=== PATIENT | female | born 1980 | race Caucasian/White ===

== ENCOUNTER 2016-06-04 11:21 | Emergency (ER) | payer MEDICAID ==
[2016-06-04 11:30] VITALS: BP 117/76
[2016-06-04] MEDS ORDERED: Albuterol/Ipratropium 3.0-0.5 MG/3 ML Neb Soln ONE (12:00)
--- NOTE | 2016-06-04 12:01 | EDM.PDOC ---
ED HISTORY OF PRESENT ILLNESS - General Chief Complaint: Respiratory Problem Stated Complaint: [id number] SOB Time Seen by Provider: 06/04/16 11:56 Source of Information: Reports: Patient History Limitations: Reports: No limitations - History of Present Illness INITIAL COMMENTS - FREE TEXT/NARRATIVE: 35 yo white female c/o 3 days of cough w/ clear sputum and wheezing. PMHx. Asthma. Pt. stop smoking cigs. 2015. Pt. states she felt warm but no fever or chills Symptom Onset Date: 06/01/16 Symptom Onset Time: 12:00 Timing/Duration: Reports: Day(s): Severity: moderate Location, General: Reports: chest Worsens with: Reports: Breathing Associated Symptoms (General): Reports: cough w sputum - Related Data Allergies/ADRs: Allergies Allergy/AdvReac Type Severity Reaction Status Date / Time ketorolac tromethamine Allergy Hives Verified 06/04/16 11:30 [From Toradol] latex Allergy unknown Verified 06/04/16 11:30 Home Meds: Home Meds Albuterol [Ventolin HFA] 2 puff INH Q6H PRN 05/29/14 [History] Fluticasone Propionate [Flovent HFA 110 MCG] 12 gm INH BID 06/22/15 [History] Albuterol [IJD: Albuterol] 2.5 mg NEB Q3H nebule 02/15/16 [Rx] Budesonide [Pulmicort] 0.5 mg NEB BIDRT neb 02/15/16 [Rx] Past Medical History HEENT History: Reports: Otitis media Cardiovascular History: Reports: None Respiratory History: Reports: Asthma Gastrointestinal History: Reports: None Genitourinary History: Reports: None 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: Dysfunctional uterine bleeding Musculoskeletal History: Reports: None Neurological History: Reports: Migraines Psychiatric History: Reports: Anxiety, Depression Endocrine/Metabolic History: Reports: None Hematologic History: Reports: Anemia Immunologic History: Reports: None Oncologic (Cancer) History: Reports: None Dermatologic History: Reports: None - Infectious Disease History Infectious Disease History: Reports: Chicken pox - Past Surgical History Head Surgeries/Procedures: Reports: None Female Surgical History: Reports: section, Tubal ligation Social & Family History - Family History Family Medical History: Noncontributory - Tobacco Use Smoking Status *Q: Former Smoker Years of Tobacco use: 10 Packs/Tins Daily: 0.1 Used Tobacco, but Quit: Yes Month Tobacco Last Used: february Second Hand Smoke Exposure: No - Caffeine Use Caffeine Use: Reports: Coffee, Soda - Alcohol Use Days Per Week of Alcohol Use: 0 Number of Drinks Per Day: 0 Total Drinks Per Week: 0 - Recreational Drug Use Recreational Drug Use: No Drug Use in Last 12 Months: No - Living Situation & Occupation Living situation: Reports: , with family Occupation: employed ED ROS GENERAL - Review of Systems Review Of Systems: See Below Constitutional: Reports: no symptoms HEENT: Reports: No symptoms Respiratory: Reports: Shortness of Breath, Cough Cardiovascular: Reports: No symptoms Endocrine: Reports: no symptoms GI/Abdominal: Reports: No symptoms : Reports: no symptoms Musculoskeletal: Reports: no symptoms Skin: Reports: no symptoms Neurological: Reports: No Symptoms Psychiatric: Reports: No symptoms Hematologic/Lymphatic: Reports: no symptoms Immunologic: Reports: no symptoms ED EXAM, GENERAL - Physical Exam Exam: See Below Exam Limited By: No limitations General Appearance: alert, no apparent distress Eye Exam: bilateral eye: EOMI, PERRL Ears: normal external exam Nose: normal inspection Throat/Mouth: Normal inspection, Normal lips Head: atraumatic, normocephalic Neck: normal inspection Respiratory/Chest: no respiratory distress, rhonchi, wheezing Cardiovascular: normal peripheral pulses, regular rate, rhythm Back Exam: normal inspection Extremities: normal inspection Neurological: alert, oriented, CN II-XII intact Psychiatric: normal affect Skin Exam: Warm, Normal color Lymphatic: no adenopathy Course - Vital Signs Text/Narrative:: discussed with patient Last Recorded V/S: Last Vital Signs Temp 35.8 C 06/04/16 11:25 Pulse 74 06/04/16 12:06 Resp 16 06/04/16 11:25 BP 117/76 06/04/16 11:25 Pulse Ox 95 06/04/16 12:06 - Orders/Labs/Meds Orders: Active Orders 24 hr Category Date Time Status Chest 2V [CR] Urgent Exams 06/04/16 11:57 Ordered CBC WITH AUTO DIFF [HEME] Stat Lab 06/04/16 12:06 Results LACTIC ACID [CHEM] Stat Lab 06/04/16 12:00 Ordered MANUAL DIFFERENTIAL QA/NC [HEME] Stat Lab 06/04/16 12:06 Results guaiFENesin [Mucinex] Med 06/04/16 12:21 Once 600 mg PO STAT ONE Medication Orders Guaifenesin (Mucinex) 600 mg PO STAT ONE Stop: 06/04/16 12:22 Labs: Laboratory Tests 06/04/16 Range/Units 12:06 WBC 9.1 (5.0-10.0) 10^3/uL RBC 5.52 H (4.2-5.4) 10^6/uL Hgb 14.8 (12.0-16.0) g/dL Hct 44.4 (37.0-47.0) % MCV 80.4 (80-100) fL MCH 26.8 L (27.0-34.0) pg MCHC 33.3 (33.0-35.0) g/dL Plt Count 268 (150-450) 10^3/uL Neut % (Auto) 51.6 (42.2-75.2) % Lymph % (Auto) 28.7 (20.5-50.1) % Atlantic % (Auto) 5.7 (2-8) % Eos % (Auto) 13.2 H (1.0-3.0) % Baso % (Auto) 0.8 (0.0-1.0) % Add Manual Diff Yes Meds: Medications Generic Name Dose Route Start Last Admin Trade Name Freq PRN Reason Stop Dose Admin Guaifenesin 600 mg 06/04/16 12:21 Mucinex PO 06/04/16 12:22 STAT ONE Discontinued Medications Generic Name Dose Route Start Last Admin Trade Name Freq PRN Reason Stop Dose Admin Albuterol/Ipratropium Confirm 06/04/16 12:00 06/04/16 12:05 Duoneb 3.0-0.5 Mg/3 Ml Administered 06/04/16 12:01 3 ml Dose Administration 3 ml .ROUTE .STK-MED ONE Azithromycin 500 mg 06/04/16 12:19 Zithromax PO 06/04/16 12:20 ONETIME ONE Methylprednisolone Sodium Succinate 125 mg 06/04/16 12:02 06/04/16 12:10 Solu-Medrol IM 06/04/16 12:03 125 mg ONETIME ONE Administration Departure - Departure Time of Disposition: 12:21 Disposition: Home, Self-Care 01 Condition: good Clinical Impression: Bronchitis Forms: ED Department Discharge Additional Instructions: Rest Increase intake of Fluids ( Water / Juice) Take the Zithromax 250mg QD X 4 days Take the Mucinex 600mg BID X 15 days F/U w/ PCP - My Orders Last 24 Hours: My Active Orders 06/04/16 11:57 Chest 2V [CR] Urgent 06/04/16 12:00 LACTIC ACID [CHEM] Stat 06/04/16 12:06 CBC WITH AUTO DIFF [HEME] Stat MANUAL DIFFERENTIAL QA/NC [HEME] Stat 06/04/16 12:21 guaiFENesin [Mucinex] 600 mg PO STAT ONE - Assessment/Plan Last 24 Hours: My Active Orders 06/04/16 11:57 Chest 2V [CR] Urgent 06/04/16 12:00 LACTIC ACID [CHEM] Stat 06/04/16 12:06 CBC WITH AUTO DIFF [HEME] Stat MANUAL DIFFERENTIAL QA/NC [HEME] Stat 06/04/16 12:21 guaiFENesin [Mucinex] 600 mg PO STAT ONE
[2016-06-04] MEDS ORDERED: methylPREDNISolone Sodium Succinate 125 MG/2 ML SDV IM ONE (12:02)
[2016-06-04] MEDS ORDERED: Azithromycin 250 MG Tab PO ONE (12:19)
[2016-06-04] MEDS ORDERED: guaiFENesin 600 MG Tab.ER PO ONE (12:21)
== END 2016-06-04 12:40 | disposition home or self-care (01) ==
LOC: DL.ED 11:21
DX: J40 Bronchitis, not specified as acute or chronic (principal); F41.9 Anxiety disorder, unspecified; F32.9 Major depressive disorder, single episode, unspecified; Z79.899 Other long term (current) drug therapy; Z86.2 Personal history of diseases of the blood and blood-forming organs and certain disorders involving the immune mechanism; Z98.51 Tubal ligation status; Z87.891 Personal history of nicotine dependence; Z91.040 Latex allergy status
CPT/HCPCS: 36415; 71020; 83605; 85025; 96372; 99285; A9270; J2930

== ENCOUNTER 2016-06-30 22:41 | Emergency (ER) | payer MEDICAID ==
[2016-06-30] MEDS ORDERED: methylPREDNISolone Sodium Succinate 125 MG/2 ML SDV IVPUSH ONE (23:26)
[2016-06-30] MEDS ORDERED: Albuterol/Ipratropium 3.0-0.5 MG/3 ML Neb Soln NEB ONE (23:27)
[2016-06-30] MEDS ORDERED: predniSONE 20 MG Tab PO ONE (23:59)
[2016-07-01] MEDS ORDERED: Albuterol 0.083% 2.5 MG/3 ML Neb Soln NEB ONE (00:15)
[2016-07-01] MEDS ORDERED: predniSONE 20 MG Tab ONE (00:55)
--- NOTE | 2016-07-01 01:02 | EDM.PDOC ---
ED HPI GENERAL MEDICAL PROBLEM - General Chief Complaint: Respiratory Problem Stated Complaint: TROUBLE BREATHING Time Seen by Provider: 06/30/16 23:15 Source of Information: Reports: Patient History Limitations: Reports: No Limitations - History of Present Illness INITIAL COMMENTS - FREE TEXT/NARRATIVE: c/o difficultly breathing, asthma not responding to rescue inhaler. Admits recent move to house that had cats. Carpets recently cleaned. Unalbe to locate nebulizer machine in moving process. No fever or chills. Location: Reports: Chest Worsens with: Reports: Breathing Associated Symptoms: Reports: Cough. 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: Reports: Breathing Treatments Chest Pain Score (Numeric/FACES): 7 - Related Data Allergies Allergy/AdvReac Type Severity Reaction Status Date / Time ketorolac tromethamine Allergy Hives Verified 06/30/16 22:45 [From Toradol] latex Allergy unknown Verified 06/30/16 22:45 Home Meds: Home Meds Albuterol [Ventolin HFA] 2 puff INH Q6H PRN 05/29/14 [History] Fluticasone Propionate [Flovent HFA 110 MCG] 12 gm INH BID 06/22/15 [History] Albuterol [IJD: Albuterol] 2.5 mg NEB Q3H nebule 02/15/16 [Rx] Budesonide [Pulmicort] 0.5 mg NEB BIDRT neb 02/15/16 [Rx] Albuterol/Ipratropium [Combivent Respimat] 1 puff INH Q8H 06/30/16 [History] LORazepam [LORazepam] 1 tab PO DAILY 06/30/16 [History] Zolpidem Tartrate [Zolpidem Tartrate] 1 tab PO DAILY PRN 06/30/16 [History] Past Medical History HEENT History: Reports: Otitis Media Cardiovascular History: Reports: None Respiratory History: Reports: Asthma Gastrointestinal History: Reports: None Genitourinary History: Reports: None 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 Musculoskeletal History: Reports: None Neurological History: Reports: Migraines Psychiatric History: Reports: Anxiety, Depression Endocrine/Metabolic History: Reports: None Hematologic History: Reports: Anemia Immunologic History: Reports: None Oncologic (Cancer) History: Reports: None Dermatologic History: Reports: None - Infectious Disease History Infectious Disease History: Reports: Chicken Pox - Past Surgical History Head Surgeries/Procedures: Reports: None Female Surgical History: Reports: Section, Tubal Ligation Social & Family History - Family History Family Medical History: Noncontributory - Tobacco Use Smoking Status *Q: Former Smoker Years of Tobacco use: 10 Packs/Tins Daily: 0.1 Used Tobacco, but Quit: Yes Month Tobacco Last Used: january Second Hand Smoke Exposure: No - Caffeine Use Caffeine Use: Reports: Coffee, Soda - Alcohol Use Days Per Week of Alcohol Use: 0 Number of Drinks Per Day: 0 Total Drinks Per Week: 0 - Recreational Drug Use Recreational Drug Use: No Drug Use in Last 12 Months: No - Living Situation & Occupation Living situation: Reports: , with Family Occupation: Employed ED ROS GENERAL - Review of Systems Review Of Systems: See Below Constitutional: Reports: No Symptoms HEENT: Reports: No Symptoms Respiratory: Reports: Shortness of Breath, Wheezing, Cough. Denies: Sputum Cardiovascular: Reports: No Symptoms GI/Abdominal: Reports: No Symptoms Musculoskeletal: Reports: No Symptoms Skin: Reports: No Symptoms Neurological: Reports: No Symptoms ED EXAM, GENERAL - Physical Exam Exam: See Below Exam Limited By: No Limitations General Appearance: Alert, Mild Distress Eye Exam: Bilateral Eye: EOMI, PERRL Ears: Normal External Exam Ear Exam: Right Ear: Auricle Normal Head: Atraumatic, Normocephalic Neck: Normal Inspection Respiratory/Chest: Decreased Breath Sounds, Wheezing (bilateral ) Cardiovascular: Normal Peripheral Pulses, Regular Rate, Rhythm GI/Abdominal: Normal Bowel Sounds Extremities: Normal Inspection Neurological: Alert, Oriented, Normal Cognition Psychiatric: Normal Affect, Normal Mood Skin Exam: Warm, Dry, Intact, Normal Color Course - Vital Signs Last Recorded V/S: Last Vital Signs Temp 96.6 F 07/01/16 01:13 Pulse 101 H 07/01/16 01:13 Resp 20 07/01/16 01:13 BP 124/70 07/01/16 01:13 Pulse Ox 93 L 07/01/16 01:13 - Orders/Labs/Meds Orders: Active Orders 24 hr Category Date Time Status RT Aerosol Therapy [RC] ASDIRECTED Care 06/30/16 23:27 Active RT Aerosol Therapy [RC] ASDIRECTED Care 07/01/16 00:16 Active Meds: Medications Discontinued Medications Generic Name Dose Route Start Last Admin Trade Name Freq PRN Reason Stop Dose Admin Albuterol 2.5 mg 07/01/16 00:15 07/01/16 00:21 Proventil Neb Soln NEB 07/01/16 00:16 2.5 mg ONETIME ONE Administration Albuterol/Ipratropium 3 ml 06/30/16 23:27 06/30/16 23:38 Duoneb 3.0-0.5 Mg/3 Ml NEB 06/30/16 23:28 3 ml ONETIME ONE Administration Methylprednisolone Sodium Succinate 125 mg 06/30/16 23:26 06/30/16 23:36 Solu-Medrol IVPUSH 06/30/16 23:27 125 mg ONETIME ONE Administration Prednisone Confirm 07/01/16 00:55 07/01/16 01:12 Prednisone Administered 07/01/16 00:56 Not Given Dose 40 mg .ROUTE .STK-MED ONE - Re-Assessments/Exams Free Text/Narrative Re-Assessment/Exam: 07/01/16 05:07 decreased cough and improved ir eschange following duoneb. Notes some improvment. Repeat with Albuterol. Respoirations non labored. Fine basilar expiratory wheeze. Departure - Departure Time of Disposition: 00:59 Disposition: Home, Self-Care 01 Condition: fair Clinical Impression: Asthma Qualifiers: Asthma severity: mild persistent Asthma complication type: with acute exacerbation Qualified Code(s): J45.31 - Mild persistent asthma with (acute) exacerbation - Discharge Information Instructions: Asthma, Adult Referrals: Gerardo Pham MD [Primary Care Provider] - Forms: ED Department Discharge Additional Instructions: clinic follow up next week muccinex to loosen cough per package instructions albuterol inhaler 2 puffs every 4 hours as needed prednisone 40mg x 4 days then 20mg x 5 days 10mg x 5 days - My Orders Last 24 Hours: My Active Orders 06/30/16 23:27 RT Aerosol Therapy [RC] ASDIRECTED 07/01/16 00:16 RT Aerosol Therapy [RC] ASDIRECTED - Assessment/Plan Last 24 Hours: My Active Orders 06/30/16 23:27 RT Aerosol Therapy [RC] ASDIRECTED 07/01/16 00:16 RT Aerosol Therapy [RC] ASDIRECTED
[2016-07-01 01:17] VITALS: BP 124/70
== END 2016-07-01 01:17 | disposition home or self-care (01) ==
LOC: DL.ED 22:41
DX: J45.31 Mild persistent asthma with (acute) exacerbation (principal); Z88.8 Allergy status to other drugs, medicaments and biological substances; Z91.040 Latex allergy status; Z79.899 Other long term (current) drug therapy; Z87.891 Personal history of nicotine dependence
CPT/HCPCS: 94640; 96374; 99284; J2930; J7620; A9270-GY

== ENCOUNTER 2016-12-15 07:36 | Emergency (ER) | payer MEDICAID ==
[2016-12-15] MEDS ORDERED: Lidocaine 2% Viscous Solution 15 ML Cup PO ONE (07:52)
[2016-12-15] MEDS ORDERED: Acetaminophen 500 MG Tab PO ONE (07:53)
[2016-12-15 07:54] VITALS: BP 130/81
--- NOTE | 2016-12-15 07:54 | EDM.PDOC ---
ED HPI GENERAL MEDICAL PROBLEM - General Chief Complaint: ENT Problem Stated Complaint: BAD EAR ACHE [id number] Time Seen by Provider: 12/15/16 07:48 Source of Information: Reports: Patient History Limitations: Reports: No Limitations - History of Present Illness INITIAL COMMENTS - FREE TEXT/NARRATIVE: 36 yo white female c/o right ear pain and draining since last night Onset Date: 12/14/16 Onset Time: 12:00 Duration: Hour(s): Location: Reports: Face Quality: Reports: Ache Severity: Moderate Improves with: Reports: None Worsens with: Reports: None Associated Symptoms: Reports: No Other Symptoms - Related Data Allergies Allergy/AdvReac Type Severity Reaction Status Date / Time ketorolac tromethamine Allergy Hives Verified 06/30/16 22:45 [From Toradol] latex Allergy unknown Verified 06/30/16 22:45 Home Meds: Home Meds Albuterol [Ventolin HFA] 2 puff INH Q6H PRN 05/29/14 [History] Fluticasone Propionate [Flovent HFA 110 MCG] 12 gm INH BID 06/22/15 [History] Albuterol [IJD: Albuterol] 2.5 mg NEB Q3H nebule 02/15/16 [Rx] Budesonide [Pulmicort] 0.5 mg NEB BIDRT neb 02/15/16 [Rx] Albuterol/Ipratropium [Combivent Respimat] 1 puff INH Q8H 06/30/16 [History] LORazepam [LORazepam] 1 tab PO DAILY 06/30/16 [History] Zolpidem Tartrate [Zolpidem Tartrate] 1 tab PO DAILY PRN 06/30/16 [History] Past Medical History HEENT History: Reports: Otitis Media Cardiovascular History: Reports: None Respiratory History: Reports: Asthma Gastrointestinal History: Reports: None Genitourinary History: Reports: None 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 Musculoskeletal History: Reports: None Neurological History: Reports: Migraines Psychiatric History: Reports: Anxiety, Depression Endocrine/Metabolic History: Reports: None Hematologic History: Reports: Anemia Immunologic History: Reports: None Oncologic (Cancer) History: Reports: None Dermatologic History: Reports: None - Infectious Disease History Infectious Disease History: Reports: Chicken Pox - Past Surgical History Head Surgeries/Procedures: Reports: None Female Surgical History: Reports: Section, Tubal Ligation Social & Family History - Family History Family Medical History: Noncontributory - Tobacco Use Smoking Status *Q: Former Smoker Years of Tobacco use: 10 Packs/Tins Daily: 0.1 Used Tobacco, but Quit: Yes Month Tobacco Last Used: january Second Hand Smoke Exposure: No - Caffeine Use Caffeine Use: Reports: Coffee, Soda - Alcohol Use Days Per Week of Alcohol Use: 0 Number of Drinks Per Day: 0 Total Drinks Per Week: 0 - Recreational Drug Use Recreational Drug Use: No Drug Use in Last 12 Months: No - Living Situation & Occupation Living situation: Reports: , with Family Occupation: Employed ED ROS ENT - Review of Systems Review Of Systems: See Below Constitutional: Reports: No Symptoms HEENT: Reports: Ear Pain (right), Other (right ear drainage) Respiratory: Reports: No Symptoms Cardiovascular: Reports: No Symptoms Endocrine: Reports: No Symptoms GI/Abdominal: Reports: No Symptoms : Reports: No Symptoms Musculoskeletal: Reports: No Symptoms Skin: Reports: No Symptoms Neurological: Reports: No Symptoms Psychiatric: Reports: No Symptoms Hematologic/Lymphatic: Reports: No Symptoms Immunologic: Reports: No Symptoms ED EXAM, ENT - Physical Exam Exam: See Below Exam Limited By: No Limitations General Appearance: Alert, No Apparent Distress Eye Exam: Bilateral Eye: PERRL Ears: Normal External Exam, Canal Discharge, Canal Swelling Nose: Normal Inspection, Normal Mucousa Mouth/Throat: Normal Inspection, Normal Gums Head: Atraumatic Neck: Normal Inspection, Supple Respiratory/Chest: No Respiratory Distress, Lungs Clear Cardiovascular: Normal Peripheral Pulses, Regular Rate, Rhythm GI/Abdominal: Normal Bowel Sounds, Soft, Non-Tender Back: Normal Inspection Extremities: Normal Inspection, Normal Range of Motion Neurological: Alert, Oriented, CN II-XII Intact Psychiatric: Normal Affect, Normal Mood Skin: Warm, Dry, Intact Lymphatic: No Adenopathy Departure - Departure Time of Disposition: 07:56 Disposition: Home, Self-Care 01 Condition: Good Clinical Impression: Otitis externa Qualifiers: Otitis externa type: unspecified type Chronicity: acute Laterality: right Qualified Code(s): H60.501 - Unspecified acute noninfective otitis externa, right ear - Discharge Information Forms: ED Department Discharge Additional Instructions: No Water in ear Use the Ear Drops as prescribed only: CORTISPORIN OTIC SOLN. 3 drops to right ear QID # 5cc For pain: TYLENOL ES 500mg QID F/U w/ PCP
== END 2016-12-15 08:18 | disposition home or self-care (01) ==
LOC: DL.ED 07:36
DX: H60.501 Unspecified acute noninfective otitis externa, right ear (principal); Z91.040 Latex allergy status; J45.909 Unspecified asthma, uncomplicated
CPT/HCPCS: 99282; A9270

== ENCOUNTER 2017-06-10 19:37 | Emergency (ER) | payer MEDICAID ==
[2017-06-10] MEDS ORDERED: Albuterol/Ipratropium 3.0-0.5 MG/3 ML Neb Soln ONE (19:43)
[2017-06-10] MEDS ORDERED: methylPREDNISolone Sodium Succinate 125 MG/2 ML SDV IM ONE (19:46)
--- NOTE | 2017-06-10 19:49 | EDM.PDOC ---
ED HPI GENERAL MEDICAL PROBLEM - General Chief Complaint: Asthma Stated Complaint: TROUBLE BREATHING, COUGHING Time Seen by Provider: 06/10/17 19:47 Source of Information: Reports: Patient History Limitations: Reports: No Limitations - History of Present Illness INITIAL COMMENTS - FREE TEXT/NARRATIVE: been wheezing all day has neb not working. - Related Data Allergies Allergy/AdvReac Type Severity Reaction Status Date / Time ketorolac tromethamine Allergy Hives Verified 06/10/17 19:47 [From Toradol] latex Allergy unknown Verified 06/10/17 19:47 Home Meds: Home Meds Albuterol [Ventolin HFA] 2 puff INH Q6H PRN 05/29/14 [History] Fluticasone Propionate [Flovent HFA 110 MCG] 12 gm INH BID 06/22/15 [History] Albuterol [IJD: Albuterol] 2.5 mg NEB Q3H nebule 02/15/16 [Rx] Budesonide [Pulmicort] 0.5 mg NEB BIDRT neb 02/15/16 [Rx] Albuterol/Ipratropium [Combivent Respimat] 1 puff INH Q8H 06/30/16 [History] LORazepam 1 tab PO DAILY 06/30/16 [History] Zolpidem Tartrate 1 tab PO DAILY PRN 06/30/16 [History] Past Medical History HEENT History: Reports: Otitis Media Other HEENT History: Chronic otitis media Cardiovascular History: Reports: None Respiratory History: Reports: Asthma Gastrointestinal History: Reports: None Genitourinary History: Reports: None 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 Musculoskeletal History: Reports: None Neurological History: Reports: Migraines Psychiatric History: Reports: Anxiety, Depression Endocrine/Metabolic History: Reports: None Hematologic History: Reports: Anemia Immunologic History: Reports: None Oncologic (Cancer) History: Reports: None Dermatologic History: Reports: None - Infectious Disease History Infectious Disease History: Reports: Chicken Pox - Past Surgical History Head Surgeries/Procedures: Reports: None Female Surgical History: Reports: Section, Tubal Ligation Social & Family History - Family History Family Medical History: Noncontributory - Tobacco Use Smoking Status *Q: Former Smoker Years of Tobacco use: 10 Packs/Tins Daily: 0.1 Used Tobacco, but Quit: Yes Month/Year Tobacco Last Used: 1 Second Hand Smoke Exposure: No - Caffeine Use Caffeine Use: Reports: Coffee, Soda - Alcohol Use Days Per Week of Alcohol Use: 0 Number of Drinks Per Day: 0 Total Drinks Per Week: 0 - Recreational Drug Use Recreational Drug Use: No Drug Use in Last 12 Months: No - Living Situation & Occupation Living situation: Reports: , with Family Occupation: Employed ED ROS GENERAL - Review of Systems Review Of Systems: ROS reveals no pertinent complaints other than HPI. ED EXAM, GENERAL - Physical Exam Exam: See Below Exam Limited By: No Limitations General Appearance: Alert, WD/WN, Mild Distress, Other (sob) Ears: Hearing Grossly Normal Throat/Mouth: Normal Voice, No Airway Compromise Head: Atraumatic Neck: Non-Tender, Full Range of Motion Respiratory/Chest: Decreased Breath Sounds, Wheezing, Prolonged Expiration. No : Retractions, Splinting Cardiovascular: Regular Rate, Rhythm GI/Abdominal: Soft, Non-Tender Neurological: Alert, Oriented, Normal Cognition, Normal Gait, No Motor/Sensory Deficits Psychiatric: Normal Affect, Normal Mood Skin Exam: Warm, Dry, Normal Color Lymphatic: No Adenopathy Course - Vital Signs Last Recorded V/S: Last Vital Signs Temp 36.1 C 06/10/17 19:42 Pulse 90 06/10/17 19:42 Resp 18 06/10/17 19:42 BP 131/73 06/10/17 19:42 Pulse Ox 95 06/10/17 19:42 - Orders/Labs/Meds Meds: Medications Discontinued Medications Generic Name Dose Route Start Last Admin Trade Name Lex PRN Reason Stop Dose Admin Albuterol/Ipratropium Confirm 06/10/17 19:43 06/10/17 19:47 Duoneb 3.0-0.5 Mg/3 Ml Administered 06/10/17 19:44 3 ml Dose Administration 3 ml .ROUTE .STK-MED ONE Methylprednisolone Sodium Succinate 125 mg 06/10/17 19:46 06/10/17 19:52 Solu-Medrol IM 06/10/17 19:47 125 mg ONETIME ONE Administration - Re-Assessments/Exams Free Text/Narrative Re-Assessment/Exam: 06/10/17 20:08 s/p duoneb + IM solumed = much better 06/10/17 20:34 re-exam; feels good to go home Departure - Departure Time of Disposition: 20:34 Disposition: Home, Self-Care 01 Condition: Good Clinical Impression: Asthma exacerbation Qualifiers: Asthma severity: moderate Asthma persistence: persistent Qualified Code(s): J45.41 - Moderate persistent asthma with (acute) exacerbation - Discharge Information Instructions: Asthma, Adult, [id number] Forms: ED Department Discharge Additional Instructions: 1) continue nebs at home 2) rest 3) recheck if there is any change or concern rx given; albuterol inhaler qid prn medrol dospak
[2017-06-10 20:41] VITALS: BP 119/77
== END 2017-06-10 20:44 | disposition home or self-care (01) ==
LOC: DL.ED 19:37
DX: J45.41 Moderate persistent asthma with (acute) exacerbation (principal); Z88.6 Allergy status to analgesic agent; Z91.040 Latex allergy status; Z79.899 Other long term (current) drug therapy; Z87.891 Personal history of nicotine dependence
CPT/HCPCS: 96372; 99284; J2930

== ENCOUNTER 2017-11-06 21:21 | Emergency (ER) | payer SELFPAY ==
[2017-11-06] MEDS ORDERED: predniSONE 20 MG Tab PO ONE (21:22)
[2017-11-06] MEDS ORDERED: Albuterol 0.083% 2.5 MG/3 ML Neb Soln INH ONE (21:22)
[2017-11-06] MEDS ORDERED: Albuterol/Ipratropium 3.0-0.5 MG/3 ML Neb Soln ONE (21:23)
[2017-11-06] MEDS ORDERED: Albuterol/Ipratropium 3.0-0.5 MG/3 ML Neb Soln NEB ONE (21:24)
[2017-11-06] MEDS ORDERED: methylPREDNISolone Sodium Succinate 125 MG/2 ML SDV IVPUSH ONE (21:24)
[2017-11-06] MEDS ORDERED: Albuterol 0.083% 2.5 MG/3 ML Neb Soln NEB ONE ×2 (21:24→22:20)
[2017-11-06 21:38] VITALS: BP 144/85
[2017-11-06] MEDS ORDERED: LORazepam 2 MG/ML Syringe IVPUSH ONE (22:22)
[2017-11-06] MEDS: Albuterol 0.083% 2.5 MG/3 ML Neb Soln NEB ONE (22:25)
[2017-11-07] MEDS ORDERED: predniSONE 20 MG Tab ONE (01:11)
[2017-11-07] MEDS ORDERED: Albuterol 0.083% 2.5 MG/3 ML Neb Soln ONE (01:12)
--- NOTE | 2017-11-07 01:21 | EDM.PDOC ---
ED HPI GENERAL MEDICAL PROBLEM - General Chief Complaint: Respiratory Problem Stated Complaint: CANT BREATHE Time Seen by Provider: 11/06/17 21:25 Source of Information: Reports: Patient, RN History Limitations: Reports: No Limitations - History of Present Illness INITIAL COMMENTS - FREE TEXT/NARRATIVE: ED with c/o difficulty breathing, Hx asthma. States today cleaning in basement with dust and lots of mouse droppings. Hx asthma exacerbations in similar environment. Tried ebulizer but medication ., Helped some. No recent URI. - Related Data Allergies Allergy/AdvReac Type Severity Reaction Status Date / Time ketorolac tromethamine Allergy Hives Verified 06/10/17 19:47 [From Toradol] latex Allergy unknown Verified 06/10/17 19:47 Home Meds: Home Meds Albuterol [Ventolin HFA] 2 puff INH Q6H PRN 05/29/14 [History] Fluticasone Propionate [Flovent HFA 110 MCG] 12 gm INH BID 06/22/15 [History] Albuterol [IJD: Albuterol] 2.5 mg NEB Q3H nebule 02/15/16 [Rx] Budesonide [Pulmicort] 0.5 mg NEB BIDRT neb 02/15/16 [Rx] Albuterol/Ipratropium [Combivent Respimat] 1 puff INH Q8H 06/30/16 [History] LORazepam 1 tab PO DAILY 06/30/16 [History] Zolpidem Tartrate 1 tab PO DAILY PRN 06/30/16 [History] Past Medical History HEENT History: Reports: Otitis Media Other HEENT History: Chronic otitis media Cardiovascular History: Reports: None Respiratory History: Reports: Asthma Gastrointestinal History: Reports: None Genitourinary History: Reports: None 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: Dysfunctional Uterine Bleeding Musculoskeletal History: Reports: None Neurological History: Reports: Migraines Psychiatric History: Reports: Anxiety, Depression Endocrine/Metabolic History: Reports: None Hematologic History: Reports: Anemia Immunologic History: Reports: None Oncologic (Cancer) History: Reports: None Dermatologic History: Reports: None - Infectious Disease History Infectious Disease History: Reports: Chicken Pox - Past Surgical History Head Surgeries/Procedures: Reports: None Female Surgical History: Reports: Section, Tubal Ligation Social & Family History - Family History Family Medical History: Noncontributory - Tobacco Use Smoking Status *Q: Never Smoker Second Hand Smoke Exposure: No - Caffeine Use Caffeine Use: Reports: Coffee, Energy Drinks, Soda - Recreational Drug Use Recreational Drug Use: No - Living Situation & Occupation Living situation: Reports: , with Family Occupation: Employed ED ROS GENERAL - Review of Systems Review Of Systems: ROS reveals no pertinent complaints other than HPI. ED EXAM, GENERAL - Physical Exam Exam: See Below Exam Limited By: No Limitations General Appearance: Alert, Moderate Distress Eye Exam: Bilateral Eye: EOMI Ears: Normal External Exam, Normal TMs Nose: Normal Inspection Throat/Mouth: Normal Inspection Head: Atraumatic, Normocephalic Neck: Normal Inspection, Full Range of Motion Respiratory/Chest: Decreased Breath Sounds, Wheezing, Accessory Muscle Use Cardiovascular: Normal Peripheral Pulses, Regular Rate, Rhythm, Tachycardia GI/Abdominal: Normal Bowel Sounds, Soft Extremities: Normal Inspection Neurological: Alert, Oriented, Normal Cognition Psychiatric: Anxious Skin Exam: Warm, Dry, Intact, Normal Color Course - Vital Signs Last Recorded V/S: Last Vital Signs Temp 97.4 F 11/06/17 21:26 Pulse 122 H 11/06/17 21:26 Resp 26 H 11/06/17 21:26 BP 144/85 H 11/06/17 21:26 Pulse Ox 92 L 11/06/17 21:26 - Orders/Labs/Meds Labs: Laboratory Tests 11/06/17 Range/Units 21:29 WBC 9.8 (5.0-10.0) 10^3/uL RBC 5.20 (4.2-5.4) 10^6/uL Hgb 15.6 (12.0-16.0) g/dL Hct 46.2 (37.0-47.0) % MCV 88.8 D (80-100) fL MCH 30.0 (27.0-34.0) pg MCHC 33.8 (33.0-35.0) g/dL Plt Count 250 (150-450) 10^3/uL Neut % (Auto) 46.9 (42.2-75.2) % Lymph % (Auto) 32.8 (20.5-50.1) % Kane % (Auto) 6.1 (2-8) % Eos % (Auto) 13.6 H (1.0-3.0) % Baso % (Auto) 0.6 (0.0-1.0) % Meds: Medications Discontinued Medications Generic Name Dose Route Start Last Admin Trade Name Lex LEMUSN Reason Stop Dose Admin Albuterol 2.5 mg 11/06/17 21:24 11/06/17 21:32 Proventil Neb Soln NEB 11/06/17 21:25 2.5 mg ONETIME ONE Administration Albuterol 2.5 mg 11/06/17 22:20 11/06/17 22:25 Proventil Neb Soln NEB 11/06/17 22:21 2.5 mg ONETIME ONE Administration Albuterol 2.5 mg 11/06/17 22:20 11/06/17 22:25 Proventil Neb Soln NEB 11/06/17 22:21 2.5 mg ONETIME ONE Administration Albuterol Confirm 11/07/17 01:12 11/07/17 02:41 Proventil Neb Soln Administered 11/07/17 01:13 Not Given Dose 7.5 mg .ROUTE .STK-MED ONE Albuterol 7.5 mg 11/06/17 21:22 Proventil Neb Soln INH 11/06/17 21:23 .STK-MED ONE Albuterol/Ipratropium 3 ml 11/06/17 21:24 11/06/17 21:25 Duoneb 3.0-0.5 Mg/3 Ml NEB 11/06/17 21:25 3 ml ONETIME ONE Administration Albuterol/Ipratropium Confirm 11/06/17 21:23 11/06/17 22:02 Duoneb 3.0-0.5 Mg/3 Ml Administered 11/06/17 21:24 Not Given Dose 3 ml .ROUTE .STK-MED ONE Lorazepam 1 mg 11/06/17 22:22 11/06/17 22:33 Ativan IVPUSH 11/06/17 22:23 1 mg ONETIME ONE Administration Methylprednisolone Sodium Succinate 125 mg 11/06/17 21:24 11/06/17 21:33 Solu-Medrol IVPUSH 11/06/17 21:25 125 mg ONETIME ONE Administration Prednisone Confirm 11/07/17 01:11 11/07/17 01:25 Prednisone Administered 11/07/17 01:12 Not Given Dose 40 mg .ROUTE .STK-MED ONE Prednisone 40 mg 11/06/17 21:22 Prednisone PO 11/06/17 21:23 .STK-MED ONE - Re-Assessments/Exams Free Text/Narrative Re-Assessment/Exam: Minimal improvement following initial neb, Repeat continuous albuterol neb. Air exchange improved. fine wheeze bilateral bases. Talking now in full sentences. Patient observed following neb treatment. Remained stable. Requesting discharge. Departure - Departure Time of Disposition: 01:16 Disposition: Home, Self-Care 01 Condition: Good Clinical Impression: Acute asthma - Discharge Information *PRESCRIPTION DRUG MONITORING PROGRAM REVIEWED*: Not Applicable Instructions: Asthma Attack Prevention, Adult Referrals: PCP,None [Primary Care Provider] - Forms: ED Department Discharge Additional Instructions: Albuterol inhaler 2 puffs every 4 hours as needed albuterol nebulizer 2 puffs every 4 hours as needed prednisone 40mg x3 days, 30mg x 3 days, 20mg x 3 days, 10mg x 3 days avoid asthma triggers
== END 2017-11-07 01:25 | disposition home or self-care (01) ==
LOC: DL.ED 21:21
DX: J45.909 Unspecified asthma, uncomplicated (principal); Z88.8 Allergy status to other drugs, medicaments and biological substances; Z79.899 Other long term (current) drug therapy
CPT/HCPCS: 36415; 71045; 85025; 87081; 87430; 94640; 96374; 96375; 99285; A9270-GY; J2060; J2930; J7613-GY; J7620-GY

== ENCOUNTER 2018-07-14 15:23 | Emergency (ER) | payer SELFPAY ==
[2018-07-14] MEDS ORDERED: methylPREDNISolone 4 MG Tab 21 Tab/Dosepak PO ONE (15:24)
[2018-07-14] MEDS ORDERED: Azithromycin 250 MG Tab PO ONE (15:24)
[2018-07-14] MEDS ORDERED: Albuterol/Ipratropium 3.0-0.5 MG/3 ML Neb Soln ONE ×2 (15:28→15:32)
[2018-07-14] MEDS ORDERED: Albuterol 0.083% 2.5 MG/3 ML Neb Soln NEB ONE (15:38)
[2018-07-14] MEDS ORDERED: methylPREDNISolone Sodium Succinate 125 MG/2 ML SDV ONE (15:48)
[2018-07-14 16:09] VITALS: BP 117/52
[2018-07-14 16:09] LABS: ANION GAP 17.7; CHLORIDE,CL 105 mmol/L (101-111); SODIUM,NA 138 mmol/L (135-145)
[2018-07-14] MEDS ORDERED: methylPREDNISolone Sodium Succinate 125 MG/2 ML SDV IVPUSH ONE (17:03)
[2018-07-14 18:11] LABS: BASE EXCESS ARTERIAL -4 mmol/L ((-2)-(+3)); O2 DELIVERY DEVICE ROOM AIR; O2 SATURATION ARTERIAL 90 % (95-100); PCO2 ARTERIAL 34 mmHg (35-45); PO2 ARTERIAL 59 mmHg (70-100)
[2018-07-14 18:12] LABS: ALLEN TEST POSITIVE
--- NOTE | 2018-07-14 18:45 | EDM.PDOC ---
Scribed by Shyae Bautista 07/14/18 1708 for Leah Frazier NP ED HPI GENERAL MEDICAL PROBLEM - General Chief Complaint: Respiratory Problem Stated Complaint: HAVING HARD TIME BREATING Time Seen by Provider: 07/14/18 15:45 Source of Information: Reports: Patient, RN, RN Notes Reviewed History Limitations: Reports: Intoxication - History of Present Illness INITIAL COMMENTS - FREE TEXT/NARRATIVE: Patient presents to ER with history of asthma. Yesterday she had a cough, cold and runny nose. Neb at home and ran out of inhaler. Onset: Gradual Duration: Getting Worse Location: Reports: Chest Quality: Reports: Ache Severity: Moderate Improves with: Reports: None Worsens with: Reports: None Associated Symptoms: Reports: No Other Symptoms - Related Data Allergies Allergy/AdvReac Type Severity Reaction Status Date / Time ketorolac tromethamine Allergy Hives Verified 07/14/18 15:41 [From Toradol] latex Allergy unknown Verified 07/14/18 15:41 Home Meds: Home Meds Albuterol [Ventolin HFA] 2 puff INH Q6H PRN 05/29/14 [History] Fluticasone Propionate [Flovent HFA 110 MCG] 12 gm INH BID 06/22/15 [History] Albuterol [IJD: Albuterol] 2.5 mg NEB Q3H nebule 02/15/16 [Rx] Budesonide [Pulmicort] 0.5 mg NEB BIDRT neb 02/15/16 [Rx] Albuterol/Ipratropium [Combivent Respimat] 1 puff INH Q8H 06/30/16 [History] Past Medical History HEENT History: Reports: Otitis Media Other HEENT History: Chronic otitis media Cardiovascular History: Reports: None Respiratory History: Reports: Asthma Gastrointestinal History: Reports: None Genitourinary History: Reports: None 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: Dysfunctional 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 Bleeding Musculoskeletal History: Reports: None Neurological History: Reports: Migraines Psychiatric History: Reports: Anxiety, Depression Endocrine/Metabolic History: Reports: None Hematologic History: Reports: Anemia Immunologic History: Reports: None Oncologic (Cancer) History: Reports: None Dermatologic History: Reports: None - Infectious Disease History Infectious Disease History: Reports: Chicken Pox - Past Surgical History Head Surgeries/Procedures: Reports: None Female Surgical History: Reports: Section, Tubal Ligation Social & Family History - Family History Family Medical History: Noncontributory - Caffeine Use Caffeine Use: Reports: Coffee, Energy Drinks, Soda - Living Situation & Occupation Living situation: Reports: , with Family Occupation: Employed ED ROS GENERAL - Review of Systems Review Of Systems: ROS reveals no pertinent complaints other than HPI. ED EXAM, GENERAL - Physical Exam Exam: See Below Exam Limited By: No Limitations General Appearance: Alert, WD/WN, No Apparent Distress Eye Exam: Bilateral Eye: Normal Inspection Ears: Normal External Exam, Normal Canal, Hearing Grossly Normal, Normal TMs Nose: Normal Inspection, Normal Mucosa, No Blood Throat/Mouth: Normal Inspection, Normal Lips, Normal Teeth, Normal Gums, Normal Oropharynx, Normal Voice, No Airway Compromise Head: Atraumatic, Normocephalic Neck: Normal Inspection, Supple, Non-Tender, Full Range of Motion Respiratory/Chest: Wheezing (inspiratory and expiratory) Cardiovascular: Normal Peripheral Pulses, Regular Rate, Rhythm, No Edema, No Gallop, No JVD, No Murmur, No Rub GI/Abdominal: Normal Bowel Sounds, Soft, Non-Tender, No Organomegaly, No Distention, No Abnormal Bruit, No Mass Extremities: Normal Inspection, Normal Range of Motion, Non-Tender, Normal Capillary Refill, No Pedal Edema Neurological: Alert, Oriented, CN II-XII Intact, Normal Cognition, Normal Gait, Normal Reflexes, No Motor/Sensory Deficits Skin Exam: Warm, Dry, Intact, Normal Color, No Rash Course - Vital Signs Last Recorded V/S: Last Vital Signs Temp 36.6 C 07/14/18 15:26 Pulse 101 H 07/14/18 15:26 Resp 34 H 07/14/18 15:26 BP 117/52 L 07/14/18 15:26 Pulse Ox 86 L 07/14/18 15:39 - Orders/Labs/Meds Orders: Active Orders 24 hr Category Date Time Status RT Aerosol Therapy [RC] ASDIRECTED Care 07/14/18 15:39 Active CXR [Chest 1V Frontal] [CR] Urgent Exams 07/14/18 15:45 Taken Labs: Laboratory Tests 07/14/18 07/14/18 07/14/18 Range/Units 15:39 15:39 18:05 WBC 11.3 H (5.0-10.0) 10^3/uL RBC 5.40 (4.2-5.4) 10^6/uL Hgb 16.5 H (12.0-16.0) g/dL Hct 47.6 H (37.0-47.0) % MCV 88.1 (80-100) fL MCH 30.6 (27.0-34.0) pg MCHC 34.7 (33.0-35.0) g/dL Plt Count 279 (150-450) 10^3/uL Neut % (Auto) 74.2 (42.2-75.2) % Lymph % (Auto) 16.2 L (20.5-50.1) % [place] % (Auto) 6.4 (2-8) % Eos % (Auto) 2.7 (1.0-3.0) % Baso % (Auto) 0.5 (0.0-1.0) % ABG pH 7.39 (7.35-7.45) ABG pCO2 34 L (35-45) mmHg ABG pO2 59 L (70-100) mmHg ABG HCO3 20.0 L (22-26) mmol/L ABG O2 Saturation 90 L (95-100) % ABG Base Excess -4 L ((-2)-(+3)) mmol/L Ferny Test Positive O2 Delivery Device Room air Sodium 138 (135-145) mmol/L Potassium 3.7 (3.6-5.0) mmol/L Chloride 105 (101-111) mmol/L Carbon Dioxide 19.0 L (21.0-31.0) mmol/L Anion Gap 17.7 BUN 11 (7-18) mg/dL Creatinine 0.8 (0.6-1.3) mg/dL Est Cr Clr Drug Dosing 106.57 mL/min Estimated GFR (MDRD) > 60 BUN/Creatinine Ratio 13.75 Glucose 92 (74-105) mg/dL Calcium 8.9 (8.4-10.2) mg/dl Total Bilirubin 0.9 (0.2-1.0) mg/dL AST 28 (10-42) IU/L ALT 10 (10-60) IU/L Alkaline Phosphatase 69 (42-121) IU/L Total Protein 8.0 (6.7-8.2) g/dl Albumin 4.8 (3.2-5.5) g/dl Globulin 3.2 Albumin/Globulin Ratio 1.50 Meds: Medications Discontinued Medications Generic Name Dose Route Start Last Admin Trade Name Lex PRN Reason Stop Dose Admin Albuterol 7.5 mg 07/14/18 15:38 07/14/18 15:52 Proventil Neb Soln NEB 07/14/18 15:39 Not Given ONETIME ONE Albuterol/Ipratropium Confirm 07/14/18 15:28 07/14/18 15:39 Duoneb 3.0-0.5 Mg/3 Ml Administered 07/14/18 15:29 3 ml Dose Administration 3 ml .ROUTE .STK-MED ONE Albuterol/Ipratropium Confirm 07/14/18 15:32 07/14/18 15:39 Duoneb 3.0-0.5 Mg/3 Ml Administered 07/14/18 15:33 9 ml Dose Administration 9 ml .ROUTE .STK-MED ONE Methylprednisolone Sodium Succinate Confirm 07/14/18 15:48 07/14/18 17:05 Solu-Medrol Administered 07/14/18 15:49 Not Given Dose 125 mg .ROUTE .STK-MED ONE Methylprednisolone Sodium Succinate 125 mg 07/14/18 17:03 07/14/18 15:54 Solu-Medrol IVPUSH 07/14/18 17:04 125 mg ONETIME ONE Administration - Radiology Interpretation Free Text/Narrative:: Chest x-ray: No acute findings. See rad report. - Re-Assessments/Exams Free Text/Narrative Re-Assessment/Exam: 07/14/18 17:24 WBC 11.3. Chest x-ray negative. H&H is elevated. Free Text/Narrative Re-Assessment/Exam: 07/14/18 18:32 Had continuous neb 1 hours; after 30 min sats dropped to 89-90% but she was actually feeling better; mild wheezing. Had Dr. White look at patient and we did a abd showing no pCo2 retention. PCO2 34, Po2 59 and normal ph. After reviewing with Dr. White will discharge her on medrol dose pack, azithromycin and her albuterol nebs. 07/14/18 18:34 07/14/18 18:41 Departure - Departure Time of Disposition: 16:54 Disposition: Home, Self-Care 01 Condition: Good Clinical Impression: Asthma exacerbation, Viral upper respiratory infection - Discharge Information Instructions: Viral Respiratory Infection, [id number], Asthma, Adult, Easy-to -Read, Asthma Attack Forms: ED Department Discharge Additional Instructions: RX: Medrol DOSE PATO; take 3 tabs from the end of the pack this evening. Then start at the beining in the am. Use your albuterol neb or albuterol inhaler q 4 hours. Keep up on your other inhalers You most likely have a cold that has triggered your asthma. See your PCP if not improved by next week. - My Orders Last 24 Hours: My Active Orders 07/14/18 15:39 RT Aerosol Therapy [RC] ASDIRECTED 07/14/18 15:45 CXR [Chest 1V Frontal] [CR] Urgent - Assessment/Plan Last 24 Hours: My Active Orders 07/14/18 15:39 RT Aerosol Therapy [RC] ASDIRECTED 07/14/18 15:45 CXR [Chest 1V Frontal] [CR] Urgent I have read and agree with the documentation that has been completed regarding this visit. By signing this record, I attest that the documentation was completed in my physical presence and is an accurate record of the encounter.
[2018-07-14] MEDS ORDERED: Azithromycin 250 MG Tab ONE ×2 (18:56→18:58)
[2018-07-14] MEDS ORDERED: methylPREDNISolone 4 MG Tab 21 Tab/Dosepak ONE (18:56)
[2018-07-19] MEDS ORDERED: Albuterol/Ipratropium 3.0-0.5 MG/3 ML Neb Soln NEB ONE ×2 (08:46→08:53)
== END 2018-07-14 19:15 | disposition home or self-care (01) ==
LOC: DL.ED 15:23
DX: J45.901 Unspecified asthma with (acute) exacerbation (principal); J06.9 Acute upper respiratory infection, unspecified; F41.9 Anxiety disorder, unspecified; F32.9 Major depressive disorder, single episode, unspecified; Z79.899 Other long term (current) drug therapy; Z88.6 Allergy status to analgesic agent; Z91.040 Latex allergy status
CPT/HCPCS: 36415; 36600; 71045; 80053; 82803; 85025; 94640; 96374; 99284; J2930; A9270-GY; J7620-GY